=== PATIENT | female | born 1945 | race Caucasian/White ===

== ENCOUNTER → 2017-10-08 | Outpatient (CLI) | payer OTHER ==
[~2017-10-08] MED LIST: BIOT10TA PO; CITA20TA4 PO; MELO15TA20 PO; OMEP20TA93 PO; SIMV40TA PO; TEMA30CA PO; VITA1000 PO; VITA200C3 PO; VITA500C18 PO
--- NOTE | 2017-10-08 11:45 | RADRPT ---
EXAM DATE/TIME: 10/08/2017 11:20 [place] COMPARISON: No previous studies available for comparison. INDICATIONS : Evaluate for pneumonia, pneumothorax, amd communicable diseases. Pre-op colon surgery MEDICAL HISTORY : None. SURGICAL HISTORY : Breast implants ENCOUNTER: Initial ACUITY: 1 day PAIN SCORE: 0/10 LOCATION: chest FINDINGS: PA and lateral views of the chest demonstrate the lungs to be symmetrically aerated without evidence of mass, infiltrate or effusion. The cardiomediastinal contours are unremarkable. Osseous structure s are intact. CONCLUSION: No acute disease. Ash Goyal MD on October 08, 2017 at 11:42 Board Certified Radiologist. This report was verified electronically.
[2017-10-08 12:05] LABS: AUTOMATED NEUTROPHIL # 3.8 TH/MM3 (1.8-7.7); BASOPHIL # 0.1 TH/MM3 (0-0.2); BASOPHIL % 1.1 % (0.0-2.0); EOSINOPHIL # 0.3 TH/MM3 (0-0.4); EOSINOPHIL % 5.4 % (0.0-4.0); HEMATOCRIT 39.7 % (35.0-46.0); HEMOGLOBIN 13.4 GM/DL (11.6-15.3); LYMPH % 19.8 % (9.0-44.0); LYMPHOCYTE # 1.1 TH/MM3 (1.0-4.8); MEAN CELL VOLUME 96.3 FL (80.0-100.0); MEAN CORPUSCULAR HEMOGLOBIN 32.5 PG (27.0-34.0); MEAN CORPUSCULAR HGB CONC 33.8 % (32.0-36.0); MONO % 7.9 % (0.0-8.0); MONOCYTE # 0.5 TH/MM3 (0-0.9); NEUT % 65.8 % (16.0-70.0); PLATELET COUNT 262 TH/MM3 (150-450); RED BLOOD COUNT 4.12 MIL/MM3 (4.00-5.30); RED CELL DISTRIBUTION WIDTH 13.6 % (11.6-17.2); WHITE BLOOD COUNT 5.7 TH/MM3 (4.0-11.0)
[2017-10-08 12:17] LABS: BILIRUBIN, URINE NEG (NEG); BLOOD, URINE NEG (NEG); GLUCOSE,URINE NEG (NEG); HYALINE CAST, URINE 1 /lpf (RARE); KETONE, URINE NEG (NEG); MUCUS URINE FEW /lpf (OCC); NITRITE,URINE NEG (NEG); SQUAMOUS EPITHELIAL CELL URINE 1 /hpf (0-5); URINE COLOR YELLOW (YELLW/STRAW); URINE LEUKOCYTE ESTERASE NEG (NEG)
[2017-10-08 12:44] LABS: ALBUMIN 3.8 GM/DL (3.4-5.0); AST (GOT) 19 U/L (15-37); BICARBONATE 32.2 MEQ/L (21.0-32.0); BLOOD UREA NITROGEN 22 MG/DL (7-18); CALCIUM 9.3 MG/DL (8.5-10.1); CHLORIDE 105 MEQ/L (98-107); CREATININE 0.63 MG/DL (0.50-1.00); GLOMERULAR FILTRATION RATE 93 ML/MIN (>89); GLUCOSE,FASTING 94 MG/DL (74-99); SODIUM (NA) 139 MEQ/L (136-145)
[2017-10-08 12:46] LABS: ALT (GPT) 19 U/L (10-53)
[2017-10-08 12:48] LABS: ALKALINE PHOSPHATASE 76 U/L (45-117); TOTAL BILIRUBIN ADULT 0.5 MG/DL (0.2-1.0); TOTAL PROTEIN 7.1 GM/DL (6.4-8.2)
--- NOTE | 2017-10-08 14:34 | EKG ---
Date Performed: 10/08/2017 Time Performed: 10:48:53 PTAGE: 72 years EKG: SINUS BRADYCARDIA LOW QRS VOLTAGE IN PRECORDIAL LEADS PROLONGED QT INTERVAL ABNORMAL ECG NO PREVIOUS TRACING DOCTOR: Endy Weir Interpretating Date/Time 10/08/2017 14:30:18
== END ==
LOC: CPRE 10:17
PROVIDERS: ATTEND Colon & Rectal Surgery
DX: D12.0 Benign neoplasm of cecum (principal); R94.31 Abnormal electrocardiogram [ECG] [EKG]; Z79.01 Long term (current) use of anticoagulants
CPT/HCPCS: 36415; 71046; 80053; 81001; 82378; 85025; 85610; 85730; 86850; 86900; 86901; 93005

== ENCOUNTER 2017-10-10 11:13 | Inpatient (IN) | payer OTHER, MEDICARE ==
[~2017-10-10] VITALS: Ht 157.5 cm; Wt 61.2 kg
[2017-10-10] MEDS ORDERED: ceFAZolin 1,000 MG/NS 100 ML IV SCH ×2 (12:00)
[2017-10-10] MEDS ORDERED: GLYCOPYRROLATE 1 MG/5 ML SYRINGE IV PUSH ONE (12:00)
[2017-10-10] MEDS ORDERED: DEXAMETHASONE SOD PHOS 4 MG/ML VIAL IV ONE (12:00)
[2017-10-10] MEDS ORDERED: METOPROLOL TARTRATE 25 MG TAB PO PRN (12:00)
[2017-10-10] MEDS ORDERED: PHENYLEPH/NS 1000 MCG/10 ML SYR IV ONE (12:00)
[2017-10-10] MEDS ORDERED: DEXT 5%-NACL 0.9% 1000 ML INJ 1,000 ML IV SCH (12:00)
[2017-10-10] MEDS ORDERED: CHLORHEXIDINE GLUCONATE 2 % 1 PACK (2 CLOTHS) TOPICAL PRN (12:00)
[2017-10-10] MEDS ORDERED: PROPOFOL 200 MG/20 ML AMP IV ONE (12:00)
[2017-10-10] MEDS ORDERED: LACTATED RINGER'S 1000 ML IV PRN (12:00)
[2017-10-10] MEDS ORDERED: SODIUM CHLORID 0.9% 500 ML IV PRN (12:00)
[2017-10-10] MEDS ORDERED: ROCURONIUM INJ 50 MG/5 ML SYRINGE IV PUSH ONE (12:00)
[2017-10-10] MEDS ORDERED: NEOSTIGMINE 5 MG/5 ML SYRINGE IV PUSH ONE (12:00)
[2017-10-10] MEDS ORDERED: ALVIMOPAN 12 MG CAPSULE - On Call PO SCH (12:00)
[2017-10-10] MEDS ORDERED: ONDANSETRON HCL 4 MG/2 ML VIAL IV ONE (12:00)
[2017-10-10] MEDS ORDERED: METRONIDAZOLE 500 MG/100 ML ISONTONIC SOLN IV SCH (12:00)
[2017-10-10] MEDS ORDERED: SODIUM CHLOR 0.9% 1000 ML INJ 1,000 ML IV ONE (12:00)
[2017-10-10] MEDS ORDERED: ePHEDrine/NS 25 MG/5 ML SYRINGE IV ONE (12:00)
[2017-10-10] MEDS ORDERED: LACTATED RINGER'S 1000 ML INJ 1,000 ML IV ONE (12:00)
[2017-10-10] MEDS ORDERED: POVIDONE IODINE 5% (ANTISEPSIS KIT) 4 APPLICATIONS EACH NARE PRN (12:00)
[2017-10-10] MEDS ORDERED: LIDOCAINE HCL 1% PF 5 ML SYRINGE OTHER ONE (12:00)
[2017-10-10] MEDS ORDERED: ACETAMINOPHEN 1000 MG/100 ML 100 ML IV ONE (14:51)
[2017-10-10] MEDS ORDERED: SUGAMMADEX SODIUM 200 MG/2 ML VIAL IV PUSH ONE (14:51)
[2017-10-10] MEDS ORDERED: DO NOT ADM ANY ANTICOAGULANT DRUGS PRN (15:08)
[2017-10-10] MEDS ORDERED: Post-op Orders (for Pharmacy) XX ONE (15:15)
[2017-10-10] MEDS ORDERED: POTASSIUM CHLOR 40 MEQ PREMIX 100 ML IV PRN (15:15)
[2017-10-10] MEDS ORDERED: SODIUM CHLORIDE 0.9% FLUSH 10 ML FLUSH IV FLUSH PRN (15:15)
[2017-10-10] MEDS ORDERED: ACETAMINOPHEN/HYDROcodone 325 MG/5 MG TAB PO PRN (15:15)
[2017-10-10] MEDS ORDERED: ENALAPRILAT 1.25 MG/ML VIAL IV PUSH PRN (15:15)
[2017-10-10] MEDS ORDERED: BENZOCAINE 6 MG/MENTHOL 10 MG LOZENGE BUCCAL PRN (15:15)
[2017-10-10] MEDS ORDERED: NALOXONE HCL 0.4 MG/ML AMP IV PUSH PRN (15:15)
[2017-10-10] MEDS ORDERED: *morphine SULFATE 4 MG/ML PERIprocedure ONLY ONE ×3 (15:24→16:00)
[2017-10-10] MEDS ORDERED: POTASSIUM CHLOR 20 MEQ PREMIX 100 ML IV PRN (16:00)
[2017-10-10] MEDS: MORPHINE SULFATE 30 MG/30 ML PCA IV SCH (16:20)
[2017-10-10] MEDS: D5-LR + KCL 20 MEQ INJ 1,000 ML IV SCH ×2 (16:20→22:34)
[2017-10-10] MEDS ORDERED: HYDROmorphone HCL PF 2 MG/ML VIAL ONE ×2 (16:24→16:43)
[2017-10-10 17:04] LABS: BICARBONATE 23.4 MEQ/L (21.0-32.0); CALCIUM 8.7 MG/DL (8.5-10.1); CREATININE 0.67 MG/DL (0.50-1.00)
[2017-10-10 17:14] LABS: AUTOMATED NEUTROPHIL # 8.8 TH/MM3 (1.8-7.7); BASOPHIL % 0.4 % (0.0-2.0); EOSINOPHIL % 0.3 % (0.0-4.0); HEMATOCRIT 36.4 % (35.0-46.0); HEMOGLOBIN 12.3 GM/DL (11.6-15.3); LYMPH % 6.5 % (9.0-44.0); LYMPHOCYTE # 0.6 TH/MM3 (1.0-4.8); MEAN CELL VOLUME 98.2 FL (80.0-100.0); MEAN CORPUSCULAR HEMOGLOBIN 33.2 PG (27.0-34.0); MEAN CORPUSCULAR HGB CONC 33.8 % (32.0-36.0); MEAN PLATELET VOLUME 7.3 FL (7.0-11.0); MONO % 3.5 % (0.0-8.0); MONOCYTE # 0.3 TH/MM3 (0-0.9); NEUT % 89.3 % (16.0-70.0); PLATELET COUNT 215 TH/MM3 (150-450); RED BLOOD COUNT 3.71 MIL/MM3 (4.00-5.30); RED CELL DISTRIBUTION WIDTH 14.1 % (11.6-17.2); WHITE BLOOD COUNT 9.8 TH/MM3 (4.0-11.0)
[2017-10-10] MEDS: METOCLOPRAMIDE HCL 10 MG/2 ML VIAL IVS SCH (18:00)
[2017-10-10 18:26] VITALS: BP 118/56; PULSE 65; RESP 16; TEMP 98.1; O2SAT 95
[2017-10-10 19:00] VITALS: BP 115/54; PULSE 84; RESP 17; TEMP 97.5; O2SAT 97
[2017-10-10 20:00] VITALS: PULSE 64
[2017-10-10] MEDS: SODIUM CHLORIDE 0.9% FLUSH 10 ML FLUSH IV FLUSH SCH (20:31)
[2017-10-10] MEDS: PRAVASTATIN SOD 80 MG TAB PO SCH (20:32)
[2017-10-10] MEDS: FUROSEMIDE 20 MG/2 ML VIAL IV PUSH SCH (20:32)
[2017-10-10 21:00] VITALS: PULSE 64
[2017-10-10] MEDS: PCA - TOTAL MG MORPHINE DELIVERED PER SHIFT SCH ×2 (21:32→21:33)
[2017-10-10] MEDS: metroNIDAZOLE 500 MG INJ 100 ML IV SCH (21:47)
[2017-10-10 22:00] VITALS: PULSE 62
[2017-10-10 23:00] VITALS: BP 106/53; PULSE 64; PULSE 65; RESP 18; TEMP 98; O2SAT 97
[2017-10-11] VITALS (20 sets, daily range): BP systolic 106–124; BP diastolic 51–60; PULSE 60–75; RESP 16–18; TEMP 98.1–99.5; O2SAT 92–96
[2017-10-11] MEDS: D5-LR + KCL 20 MEQ INJ 1,000 ML IV SCH ×3 (03:26→20:25)
[2017-10-11] MEDS: metroNIDAZOLE 500 MG INJ 100 ML IV SCH ×2 (05:28→13:37)
[2017-10-11] MEDS: METOCLOPRAMIDE HCL 10 MG/2 ML VIAL IVS SCH ×5 (05:28→23:29)
[2017-10-11] MEDS: PCA - TOTAL MG MORPHINE DELIVERED PER SHIFT SCH ×3 (05:29→20:24)
[2017-10-11 06:10] LABS: AUTOMATED NEUTROPHIL # 6.7 TH/MM3 (1.8-7.7); BASOPHIL % 0.2 % (0.0-2.0); HEMATOCRIT 32.1 % (35.0-46.0); LYMPH % 7.3 % (9.0-44.0); LYMPHOCYTE # 0.6 TH/MM3 (1.0-4.8); MEAN CELL VOLUME 97.3 FL (80.0-100.0); MEAN CORPUSCULAR HEMOGLOBIN 33.3 PG (27.0-34.0); MEAN CORPUSCULAR HGB CONC 34.2 % (32.0-36.0); MEAN PLATELET VOLUME 7.9 FL (7.0-11.0); MONO % 8.7 % (0.0-8.0); MONOCYTE # 0.7 TH/MM3 (0-0.9); NEUT % 83.8 % (16.0-70.0); PLATELET COUNT 219 TH/MM3 (150-450); RED CELL DISTRIBUTION WIDTH 13.8 % (11.6-17.2)
[2017-10-11 06:33] LABS: BICARBONATE 25.5 MEQ/L (21.0-32.0); CALCIUM 8.3 MG/DL (8.5-10.1); CREATININE 0.63 MG/DL (0.50-1.00)
[2017-10-11] MEDS: CITALOPRAM HYDROBROMIDE 20 MG TAB PO SCH (09:17)
[2017-10-11] MEDS: ALVIMOPAN 12 MG CAPSULE - Post-op dosing PO SCH ×2 (09:17→20:23)
[2017-10-11] MEDS: PANTOPRAZOLE SODIUM 40 MG VIAL IVP SCH (09:17)
[2017-10-11] MEDS: SODIUM CHLORIDE 0.9% FLUSH 10 ML FLUSH IV FLUSH SCH ×2 (09:18→20:24)
[2017-10-11] MEDS: FUROSEMIDE 20 MG/2 ML VIAL IV PUSH SCH ×2 (09:22→20:24)
[2017-10-11] MEDS: KETOROLAC TROMETHAMINE 30 MG/ML (IVP) VIAL IVP PRN (12:18)
[2017-10-11] MEDS: ONDANSETRON HCL 4 MG/2 ML VIAL IV PUSH PRN (12:20)
--- NOTE | 2017-10-11 14:08 | HHI.PR ---
Subjective Remarks Some nausea but tolerating CLD. No vomiting. Objective Vital Signs Date Time Temp Pulse Resp B/P (MAP) Pulse Ox O2 Delivery O2 Flow Rate FiO2 10/11/17 14:00 67 10/11/17 13:38 16 10/11/17 13:00 71 10/11/17 12:00 72 10/11/17 11:30 98.5 70 16 115/56 (75) 95 10/11/17 11:00 63 10/11/17 10:00 68 10/11/17 09:00 74 10/11/17 08:00 67 10/11/17 07:36 98.4 74 18 114/58 (76) 94 10/11/17 07:00 67 10/11/17 06:00 64 10/11/17 05:29 18 10/11/17 05:00 70 10/11/17 04:00 66 10/11/17 03:00 64 10/11/17 03:00 98.7 69 18 109/51 (70) 96 10/11/17 02:00 64 10/11/17 01:00 60 10/11/17 00:00 66 10/10/17 23:00 64 10/10/17 23:00 98.0 65 18 106/53 (70) 97 10/10/17 22:00 62 10/10/17 21:33 19 10/10/17 21:32 19 10/10/17 21:00 64 10/10/17 20:00 64 10/10/17 19:00 97.5 84 17 115/54 (74) 97 10/10/17 18:26 98.1 65 16 118/56 (76) 95 10/10/17 17:30 73 14 105/52 (69) 96 Nasal Cannula 2 10/10/17 17:00 97.2 69 15 113/58 (76) 97 Nasal Cannula 2 10/10/17 16:45 69 15 117/56 (76) 97 Nasal Cannula 2 10/10/17 16:30 72 12 111/54 (73) 95 Nasal Cannula 2 10/10/17 16:20 15 10/10/17 16:15 71 16 121/58 (79) 98 Nasal Cannula 2 10/10/17 16:00 72 22 120/60 (80) 97 Nasal Cannula 2 10/10/17 15:45 74 14 118/59 (78) 98 Nasal Cannula 2 10/10/17 15:30 75 17 118/57 (77) 100 Nasal Cannula 3 10/10/17 15:15 75 22 124/60 (81) 100 Nasal Cannula 3 10/10/17 15:09 97.4 83 20 127/58 (81) 98 Nasal Cannula 3 I/O 10/10/17 10/10/17 10/10/17 10/11/17 10/11/17 10/11/17 07:00 15:00 23:00 07:00 15:00 23:00 Intake Total 1100 ml 350 ml 2934 ml Output Total 70 ml 200 ml 1300 ml Balance 1030 ml 150 ml 1634 ml Intake Oral 240 ml IV Total 1100 ml 350 ml 2694 ml Output Urine Total 50 ml 200 ml 1300 ml Estimated Blood Loss 20 ml # Bowel Movements 0 Result Diagram: 10/11/17 04510/11/17450 Objective Remarks VS-S Abd: flat,dressing dry Labs and I&Os-OK Assessment and Plan Assessment and Plan Stable POD#1 Transfer,FLD tomorrow. Ash Escalante MD Oct 11, 2017 14:08
[2017-10-11] MEDS: MORPHINE SULFATE 30 MG/30 ML PCA IV SCH (17:11)
[2017-10-11] MEDS: PRAVASTATIN SOD 80 MG TAB PO SCH (20:23)
[2017-10-11] MEDS: ZOLPIDEM TARTRATE 5 MG TAB PO PRN (20:31)
[2017-10-11] MEDS ORDERED: ALVIMOPAN 12 MG CAPSULE PO SCH (21:00)
[2017-10-12 04:00] VITALS: BP 131/59; PULSE 79; RESP 18; TEMP 99.1; O2SAT 92
[2017-10-12] MEDS: METOCLOPRAMIDE HCL 10 MG/2 ML VIAL IVS SCH ×5 (05:20→19:52)
[2017-10-12] MEDS: D5-LR + KCL 20 MEQ INJ 1,000 ML IV SCH ×2 (05:21→11:35)
[2017-10-12] MEDS: PCA - TOTAL MG MORPHINE DELIVERED PER SHIFT SCH ×3 (06:00→21:01)
[2017-10-12 07:24] LABS: AUTOMATED NEUTROPHIL # 5.7 TH/MM3 (1.8-7.7); BASOPHIL % 0.5 % (0.0-2.0); EOSINOPHIL % 0.5 % (0.0-4.0); HEMOGLOBIN 11.4 GM/DL (11.6-15.3); LYMPH % 14.2 % (9.0-44.0); LYMPHOCYTE # 1.1 TH/MM3 (1.0-4.8); MEAN CELL VOLUME 96.5 FL (80.0-100.0); MEAN CORPUSCULAR HEMOGLOBIN 33.3 PG (27.0-34.0); MEAN CORPUSCULAR HGB CONC 34.5 % (32.0-36.0); MEAN PLATELET VOLUME 7.9 FL (7.0-11.0); MONO % 9.3 % (0.0-8.0); MONOCYTE # 0.7 TH/MM3 (0-0.9); NEUT % 75.5 % (16.0-70.0); PLATELET COUNT 205 TH/MM3 (150-450); RED BLOOD COUNT 3.41 MIL/MM3 (4.00-5.30); RED CELL DISTRIBUTION WIDTH 13.7 % (11.6-17.2); WHITE BLOOD COUNT 7.6 TH/MM3 (4.0-11.0)
[2017-10-12 07:40] LABS: BICARBONATE 29.7 MEQ/L (21.0-32.0); CALCIUM 8.3 MG/DL (8.5-10.1); CREATININE 0.61 MG/DL (0.50-1.00)
[2017-10-12 08:00] VITALS: BP 134/60; PULSE 80; RESP 17; TEMP 99.8; O2SAT 92
[2017-10-12] MEDS: SODIUM CHLORIDE 0.9% FLUSH 10 ML FLUSH IV FLUSH SCH ×2 (08:53→20:50)
[2017-10-12] MEDS: ONDANSETRON HCL 4 MG/2 ML VIAL IV PUSH PRN ×3 (08:57→19:51)
[2017-10-12] MEDS: ALVIMOPAN 12 MG CAPSULE - Post-op dosing PO SCH ×2 (09:00→20:49)
[2017-10-12] MEDS: CITALOPRAM HYDROBROMIDE 20 MG TAB PO SCH (09:00)
[2017-10-12] MEDS: FUROSEMIDE 20 MG/2 ML VIAL IV PUSH SCH ×2 (10:32→20:49)
[2017-10-12] MEDS: PANTOPRAZOLE SODIUM 40 MG VIAL IVP SCH (10:32)
--- NOTE | 2017-10-12 11:10 | MP ---
cc: MD EL,Noah ZAMORA DATE OF SURGERY: 10/12/2017. PREOPERATIVE DIAGNOSIS: Cecal polyp. POSTOPERATIVE DIAGNOSIS: Cecal polyp. OPERATIVE PROCEDURE PERFORMED: Ascending colectomy. SURGEON: Ash Escalante M.D. PRINT GRAPHIC DESIGNER: Sebastian Calixto MD. ANESTHESIA: General endotracheal anesthesia. ESTIMATED BLOOD LOSS: 10 cc. OPERATING TIME: One hour. OPERATIVE FINDINGS: This patient was found to have a 2-3 cm polyp surrounding her ileocecal valve and entering up into the ileocecal valve and it was frondular exophytic and biopsied benign and was felt to be un-removable endoscopically by Dr. Calixto. For this reason, he referred her to al and ascending colectomy was advised. At surgery, she was found to have omental adhesions down into the pelvis from a previous appendectomy. The remainder of the abdominal exploration was normal including the liver, the gallbladder. The pelvic organs could not really be palpated due to adhesions. The cecum and some of the omentum was stuck down in the right lower quadrant and I was able to free this up to allow resection and mobilization of that omentum. An ascending colectomy was done with an ileal transverse anastomosis. OPERATIVE TECHNIQUE: The patient was placed on the table in the supine position. After adequate general endotracheal anesthesia, the abdomen was prepped and draped in the usual sterile manner and a right superior transverse incision was made in the supraumbilical position and carried down through the skin, subcutaneous tissue and the rectus muscle on the right side and the peritoneal cavity was entered with the above-mentioned findings. First our attention was turned to the cecum and the omentum which was stuck down along the right anterior abdominal wall and this was freed up with electrocautery and mobilized the omentum up out of the pelvis as well as the cecum. The cecum was mobilized along its peritoneal reflection up the ascending colon and then the lesser sac was entered and the transverse colon was likewise mobilized from the omentum. Once this was done, the right branch of the division of the transverse colon was done between the right and left branches of the middle colic vessels and the marginal vessel was clamped, cut and ligated and the transverse colon was divided with an Ethicon MARK ANTHONY-55 stapling device. The right branch of the middle colic vessel was also clamped, cut and ligated. Next our attention was turned to the terminal ileum and the cecum and the ileocolic vessels and the terminal ileum was cleared of its blood supply and then divided between Francisco Javier clamps. Next the ileocolic vessels were doubly clamped, cut and doubly ligated with #0 Vicryl ligatures and then the right colic vessel was clamped, cut and ligated and the specimen was removed from the table. We then created the anastomosis along the anti-mesenteric border of the proximal transverse colon and the ileum with an Ethicon MARK ANTHONY-55 stapling device and then the colotomy was closed with a TX-60 blue staple height stapling device. The opening in the mesentery was approximated with a running 3-0 Vicryl suture in a simple running manner. Hemostasis was maintained throughout with electrocautery and ligature. The bowels were then replaced in the abdominal cavity in an [employer] manner and then the remainder of the omentum was placed over the bowels. The abdominal incision was closed transversely with a running double-stranded #1 PDS for the posterior rectus sheath and then after irrigation of the muscle layer, a running double-stranded #1 PDS for the anterior rectus sheath and the subcutaneous tissue was irrigated thoroughly with saline solution and aspirated dry. The skin was closed with running 3-0 Vicryl subcuticular suture and a dressing was applied. Sponge, needle and instrument counts were correct. The estimated blood loss was 10 cc. Operating time was one hour. The patient tolerated the procedure well and left the operating room in good condition. MD LENORA Day/CORRY /4:55 PM /10:58 AM
--- NOTE | 2017-10-12 11:11 | HHI.PR ---
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
[2017-10-12 12:00] VITALS: BP 142/65; PULSE 70; RESP 17; TEMP 96.1; O2SAT 92
[2017-10-12 16:00] VITALS: BP 158/71; PULSE 75; RESP 16; TEMP 99; O2SAT 92
[2017-10-12] MEDS: KETOROLAC TROMETHAMINE 30 MG/ML (IVP) VIAL IVP PRN (19:51)
[2017-10-12 20:00] VITALS: BP 130/60; PULSE 74; RESP 18; TEMP 98.8; O2SAT 94
[2017-10-12] MEDS: PRAVASTATIN SOD 80 MG TAB PO SCH (20:49)
[2017-10-12] MEDS: ZOLPIDEM TARTRATE 5 MG TAB PO PRN (20:49)
[2017-10-13] VITALS: BP 134/63; PULSE 73; RESP 18; TEMP 98.2; O2SAT 95
[2017-10-13] MEDS: ONDANSETRON HCL 4 MG/2 ML VIAL IV PUSH PRN ×3 (02:39→21:27)
[2017-10-13] MEDS: KETOROLAC TROMETHAMINE 30 MG/ML (IVP) VIAL IVP PRN ×2 (02:39→09:42)
[2017-10-13] MEDS: D5-LR + KCL 20 MEQ INJ 1,000 ML IV SCH ×2 (02:47→10:47)
[2017-10-13] MEDS: PCA - TOTAL MG MORPHINE DELIVERED PER SHIFT SCH (06:21)
[2017-10-13] MEDS: METOCLOPRAMIDE HCL 10 MG/2 ML VIAL IVS SCH ×4 (06:21→23:59)
[2017-10-13 08:00] VITALS: BP 155/71; PULSE 71; RESP 16; TEMP 98.9; O2SAT 92
[2017-10-13] MEDS: FUROSEMIDE 20 MG/2 ML VIAL IV PUSH SCH (08:18)
[2017-10-13] MEDS: SODIUM CHLORIDE 0.9% FLUSH 10 ML FLUSH IV FLUSH SCH ×2 (08:18→20:35)
[2017-10-13] MEDS: ALVIMOPAN 12 MG CAPSULE - Post-op dosing PO SCH ×2 (08:19→20:34)
[2017-10-13] MEDS: PANTOPRAZOLE SODIUM 40 MG VIAL IVP SCH (08:19)
[2017-10-13] MEDS: CITALOPRAM HYDROBROMIDE 20 MG TAB PO SCH (08:19)
--- NOTE | 2017-10-13 10:34 | HHI.PR ---
Subjective Remarks C/R Surg POD #3 afebrile, VSS UO good dry heaves, less Objective - Vital Signs Date Time Temp Pulse Resp B/P (MAP) Pulse Ox O2 Delivery O2 Flow Rate FiO2 10/13/17 08:00 98.9 71 16 155/71 (99) 92 10/10/17 17:30 Nasal Cannula 2 Result Diagram: 10/12/17 0639 10/12/17 0639 Objective Remarks PE alert Abd - soft, wound dry, no flatus A/P Assessment and Plan Imp: Nausea/vomiting OOB cont IVF slow adv diet Paul Salcido MD Oct 13, 2017 10:34
[2017-10-13 12:00] VITALS: BP 148/65; PULSE 64; RESP 17; TEMP 96.7; O2SAT 93
[2017-10-13 16:00] VITALS: BP 171/74; PULSE 66; RESP 18; TEMP 97.1; O2SAT 92
[2017-10-13] MEDS: PRAVASTATIN SOD 80 MG TAB PO SCH (20:34)
[2017-10-13 20:51] VITALS: BP 175/74; PULSE 71; RESP 18; TEMP 98.5; O2SAT 94
[2017-10-13] MEDS: ACETAMINOPHEN/HYDROcodone 325 MG/5 MG TAB PO PRN (21:28)
[2017-10-13] MEDS: ZOLPIDEM TARTRATE 5 MG TAB PO PRN (21:33)
[2017-10-14] MEDS: ONDANSETRON HCL 4 MG/2 ML VIAL IV PUSH PRN ×2 (03:27→16:47)
[2017-10-14] MEDS: METOCLOPRAMIDE HCL 10 MG/2 ML VIAL IVS SCH ×4 (05:48→23:46)
[2017-10-14 07:56] LABS: AUTOMATED NEUTROPHIL # 5.5 TH/MM3 (1.8-7.7); BASOPHIL % 0.4 % (0.0-2.0); EOSINOPHIL # 0.1 TH/MM3 (0-0.4); HEMATOCRIT 33.7 % (35.0-46.0); HEMOGLOBIN 11.6 GM/DL (11.6-15.3); LYMPH % 6.8 % (9.0-44.0); LYMPHOCYTE # 0.5 TH/MM3 (1.0-4.8); MEAN CORPUSCULAR HEMOGLOBIN 33.1 PG (27.0-34.0); MEAN CORPUSCULAR HGB CONC 34.4 % (32.0-36.0); MEAN PLATELET VOLUME 7.7 FL (7.0-11.0); MONOCYTE # 0.7 TH/MM3 (0-0.9); NEUT % 80.8 % (16.0-70.0); PLATELET COUNT 216 TH/MM3 (150-450); RED BLOOD COUNT 3.51 MIL/MM3 (4.00-5.30); RED CELL DISTRIBUTION WIDTH 13.4 % (11.6-17.2); WHITE BLOOD COUNT 6.8 TH/MM3 (4.0-11.0)
[2017-10-14 08:00] VITALS: BP 137/63; PULSE 73; RESP 16; TEMP 98.1; O2SAT 93
[2017-10-14 08:18] LABS: BICARBONATE 28.5 MEQ/L (21.0-32.0); CALCIUM 8.7 MG/DL (8.5-10.1); CREATININE 0.57 MG/DL (0.50-1.00)
[2017-10-14] MEDS: SODIUM CHLORIDE 0.9% FLUSH 10 ML FLUSH IV FLUSH SCH ×2 (09:00→19:28)
--- NOTE | 2017-10-14 09:38 | HHI.PR ---
Subjective Remarks No more nausea or vomiting. Had loose BM. Still with bloating. Wants to go home later today. Objective Vital Signs Date Time Temp Pulse Resp B/P (MAP) Pulse Ox O2 Delivery O2 Flow Rate FiO2 10/14/17 08:00 98.1 73 16 137/63 (87) 93 10/13/17 22:28 16 10/13/17 20:51 98.5 71 18 175/74 (107) 94 10/13/17 16:00 97.1 66 18 171/74 (106) 92 10/13/17 12:00 96.7 64 17 148/65 (92) 93 I/O 10/13/17 10/13/17 10/13/17 10/14/17 10/14/17 10/14/17 07:00 15:00 23:00 07:00 15:00 23:00 Intake Total 480 ml 270 ml 1240 ml Output Total 400 ml 1000 ml Balance 80 ml -730 ml 1240 ml Intake Oral 480 ml 270 ml 240 ml IV Total 1000 ml Output Urine Total 400 ml 1000 ml # Voids 2 2 # Bowel Movements 0 0 1 Result Diagram: 10/14/1773010/14/17730 Objective Remarks VS-S Abd: mild distention,wound clean Labs and I&Os-OK Assessment and Plan Assessment and Plan Stable POD#4 Start diet slowly. Ambulate. Cautioned regarding too much oral intake. Possible D/C tomorrow. Doubt D/C today. Ash Escalante MD Oct 14, 2017 09:38
[2017-10-14] MEDS: CITALOPRAM HYDROBROMIDE 20 MG TAB PO SCH (10:34)
[2017-10-14] MEDS: D5-LR + KCL 20 MEQ INJ 1,000 ML IV SCH ×3 (10:34→21:42)
[2017-10-14] MEDS: ALVIMOPAN 12 MG CAPSULE - Post-op dosing PO SCH ×2 (10:34→20:12)
[2017-10-14] MEDS: PANTOPRAZOLE SODIUM 40 MG VIAL IVP SCH (10:35)
[2017-10-14] MEDS: ACETAMINOPHEN/HYDROcodone 325 MG/5 MG TAB PO PRN ×3 (10:46→20:13)
[2017-10-14 16:00] VITALS: BP 138/65; PULSE 67; RESP 18; TEMP 96.3; O2SAT 96
[2017-10-14 20:00] VITALS: BP 152/70; PULSE 69; RESP 20; TEMP 98.2; O2SAT 94
[2017-10-14] MEDS: PRAVASTATIN SOD 80 MG TAB PO SCH (20:12)
[2017-10-14] MEDS: ZOLPIDEM TARTRATE 5 MG TAB PO PRN (21:39)
[2017-10-15] VITALS: BP 157/68; PULSE 70; RESP 18; TEMP 99.1; O2SAT 94
[2017-10-15] MEDS: ACETAMINOPHEN/HYDROcodone 325 MG/5 MG TAB PO PRN ×3 (04:58→14:46)
[2017-10-15] MEDS: METOCLOPRAMIDE HCL 10 MG/2 ML VIAL IVS SCH ×2 (05:29→13:03)
[2017-10-15 08:00] VITALS: BP 127/56; PULSE 70; RESP 19; TEMP 98.5; O2SAT 94
[2017-10-15] MEDS: SODIUM CHLORIDE 0.9% FLUSH 10 ML FLUSH IV FLUSH SCH (09:00)
[2017-10-15] MEDS: ALVIMOPAN 12 MG CAPSULE - Post-op dosing PO SCH (09:31)
[2017-10-15] MEDS: PANTOPRAZOLE SODIUM 40 MG VIAL IVP SCH (09:31)
[2017-10-15] MEDS: CITALOPRAM HYDROBROMIDE 20 MG TAB PO SCH (09:31)
[2017-10-15] MEDS: D5-LR + KCL 20 MEQ INJ 1,000 ML IV SCH (09:32)
[2017-10-15] MEDS: ONDANSETRON HCL 4 MG/2 ML VIAL IV PUSH PRN (09:35)
[2017-10-15 12:00] VITALS: BP 160/69; PULSE 71; RESP 18; TEMP 96.6; O2SAT 95
--- NOTE | 2017-10-15 13:47 | HHI.DCPOC ---
Discharge Care Plan Diagnosis: (1) Polyp of cecum (2) Ascending Colectomy Your Health Problems Are: Incision/Drains Appetite Changes Irregular Bowel Function Exercise Tolerance Goals to Promote Your Health * To prevent worsening of your condition and complications * To maintain your health at the optimal level Directions to Meet Your Goals Take your medications as prescribed Follow your dietary instruction Follow activity as directed Keep your appointments as scheduled Take your immunizations and boosters as scheduled If your symptoms worsen call your PCP, if no PCP go to Urgent Care Center or Emergency Room Smoking is Dangerous to Your Health. Avoid second hand smoke Call the 24-hour hour crisis hotline for domestic abuse at Ash Escalante MD Oct 15, 2017 13:47
== END 2017-10-15 15:04 | disposition home or self-care (01) | DRG 331 ==
LOC: HSDI 11:13 → EDUNIT# 13:30 → HCPC 17:53 → N07B 10-11 16:23
PROVIDERS: ADMIT Colon & Rectal Surgery; ATTEND Colon & Rectal Surgery
PROC: 0DTK0ZZ Resection of Ascending Colon, Open Approach (ICD-10-PCS; principal; 2017-10-10 13:26)
DX: D12.0 Benign neoplasm of cecum (principal); R11.2 Nausea with vomiting, unspecified; R14.0 Abdominal distension (gaseous)
CPT/HCPCS: 36415; 71046; 76937; 80048; 80053; 81001; 82378; 85025; 85610; 85730; 86850; 86900; 86901; 88307; 88309; 93005; C9113; J0131; J0690; J1100; J1170; J1885; J1940; J2270; J2370; J2405; J2710; J2765; J3010; J3480; J7030; J7120